=== PATIENT | female | born 1965 | race Caucasian/White ===

== ENCOUNTER 2018-11-10 12:35 | Day surgery (SDC) | payer OTHER ==
[2018-11-09 13:52] VITALS: BMI 19.2
[~2018-11-10 12:35] MED LIST: Bupivacaine HCl 0.5%/Epinephrine 1:200,000/PF 30 ml Vial ONE
[2018-11-10] MEDS ORDERED: Lidocaine 1% PF 5 ML VIAL ONE (13:22)
[2018-11-10] MEDS ORDERED: PROPOFOL 200 MG/20 ML VIAL ONE (13:22)
[2018-11-10] MEDS ORDERED: Ondansetron PF 4 MG/2 ML Vial ONE (13:22)
[2018-11-10] MEDS ORDERED: Scopolamine 1.5 mg/72 hour Patch ONE (13:24)
[2018-11-10] MEDS ORDERED: Midazolam HCl 2 mg/2 ml Vial ONE (13:26)
[2018-11-10] MEDS ORDERED: Fentanyl 100 MCG/2 ML VIAL ONE (13:26)
--- NOTE | 2018-11-10 15:01 | RAD ---
XR Wrist 3 Lt View STANDARD: 11/10/2018 12:00 AM CLINICAL INDICATION: ORIF left wrist COMPARISON: None. FINDINGS: Postop plate and screw fixation involves distal radius with underlying fracture lucency with near-nico tomic alignment. Ulnar styloid avulsion is seen. Limited detail by intraoperative fluoroscopic imagin g IMPRESSION: Postoperative fixation of the distal right radius.
--- NOTE | 2018-11-10 20:03 | OP ---
DATE OF PROCEDURE: 11/10/2018 PROCEDURES PERFORMED: Open reduction and internal fixation of left distal radius fracture. PREOPERATIVE DIAGNOSIS: Comminuted and displaced left distal radius fracture. POSTOPERATIVE DIAGNOSIS: Comminuted and displaced left distal radius fracture. COMPLICATIONS: None. ESTIMATED BLOOD LOSS: Minimal. ANESTHESIA: General plus regional. IMPLANTS: Synthes 3-hole volar distal radial plate with multiple locking and nonlocking screws. HEAT TREATER HELPER: Carlie Ferguson PA-C INDICATIONS: Ms. Riley is a 53-year-old female, who has fallen. She fractured her left distal radius. She was indicated for open reduction and internal fixation of the distal radius fracture. Risks have been reviewed in detail and she has elected to proceed with the operation. DESCRIPTION OF PROCEDURE: Ms. Riley was identified in the preoperative holding area. Her correct extremity was marked. She was carried to the operating room. She was positioned supine. General anesthesia was induced. A multidisciplinary time-out was performed. The left upper extremity was prepped and draped in sterile fashion. We began the procedure with a volar FCR approach. We dissected down through the subcutaneous tissues to the FCR tendon. The tendon sheath was opened. We reflected the tendon. We then worked more deeply down to the pronator quadratus. At this point, we reflected the pronator quadratus and evaluated the fracture. We were able to irrigate the fracture and removed hematoma. At this point, we reduced the fracture using a [place] elevator. Once the fracture was reduced. We applied a Synthes volar plate. Multiple screws were placed proximally and distally. We took x-ray images confirming plate and hardware placement. There were no complications. At this point, we proceeded to fill all screw holes. We then took final images. We thoroughly irrigated. We closed with 2-0 Vicryl suture followed by nylon for the skin. A sterile dressing was applied. The splint was placed. The patient was taken to the recovery room in good condition. Job ID: [id number]
== END 2018-11-10 17:05 | disposition home or self-care (01) ==
LOC: SDC 12:35
PROVIDERS: ATTEND Orthopaedic Surgery
PROC: 0PSJ04Z Reposition Left Radius with Internal Fixation Device, Open Approach (ICD-10-PCS; principal; 2018-11-10)
DX: S52.572A Other intraarticular fracture of lower end of left radius, initial encounter for closed fracture (principal); Z79.899 Other long term (current) drug therapy; Z98.890 Other specified postprocedural states; W19.XXXA Unspecified fall, initial encounter
CPT/HCPCS: 76000; C1713; J0670; J2001; J2250; J2405; J2704; J3010